=== PATIENT | male | born 1935 | race Caucasian/White ===

== ENCOUNTER 2016-11-22 14:43 | Outpatient (CLI) | payer MEDICARE ==
[~2016-11-22 14:43] MED LIST: Gadobenate Dimeglumine 529 MG/1 ML (20ML VIAL) ONE
--- NOTE | 2016-11-22 16:06 | MRI ---
PRE AND POSTCONTRAST ENHANCED MRI IMAGES BRAIN AND IACS: 11/22/16 HISTORY: 81-year-old male with history of left sided hearing loss. Multiplanar and multisequence pre and postcontrast enhanced MRI images of the brain is obtained. The patient has had previous endoscopic sinus surgery. 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 No evidence of intracranial masses, hemorrhages, or strokes seen. Some degree white matter ischemic changes are noted. No abnormal areas of masses or lesions seen in the internal auditory canals. IMPRESSION: Vertebrobasilar dolichoectasia, otherwise unremarkable pre and postcontrast enhanced MRI images of b rain and ICAs. POS: APRIL
== END 2016-11-22 14:44 | disposition home or self-care (01) ==
LOC: MRI 14:43
PROVIDERS: ATTEND Specialist
DX: H90.5 Unspecified sensorineural hearing loss (principal); G45.0 Vertebro-basilar artery syndrome
CPT/HCPCS: 70553; A9579

== ENCOUNTER 2018-04-14 18:00 | Outpatient (CLI) | payer MEDICARE | END 2018-04-14 18:01 | disposition home or self-care (01) | LOC: SLEEPLAB 18:00 | PROVIDERS: ATTEND Family Medicine | DX: G47.33 Obstructive sleep apnea (adult) (pediatric) (principal); R53.83 Other fatigue; G31.84 Mild cognitive impairment of uncertain or unknown etiology; K21.9 Gastro-esophageal reflux disease without esophagitis; R06.83 Snoring; F41.8 Other specified anxiety disorders; G47.00 Insomnia, unspecified; I51.9 Heart disease, unspecified; I10 Essential (primary) hypertension | CPT/HCPCS: 95806 ==

== ENCOUNTER 2020-06-15 15:20 | Outpatient (CLI) | payer MEDICARE | END 2020-06-15 15:21 | disposition home or self-care (01) | LOC: BICRAD 15:20 | PROVIDERS: ATTEND Family Medicine | DX: M54.2 Cervicalgia (principal); R20.2 Paresthesia of skin; M47.812 Spondylosis without myelopathy or radiculopathy, cervical region; M40.202 Unspecified kyphosis, cervical region; M48.02 Spinal stenosis, cervical region | CPT/HCPCS: 72052 ==

== ENCOUNTER 2021-09-02 19:41 | Observation (INO) | payer MEDICARE ==
[2021-09-02 20:59] LABS: #Eosinphils 0.3 thou/uL (0.0-0.7); #Lymphocytes 1.1 thou/uL (1.20-3.40); #Monocytes 0.7 thou/uL (0.11-0.59); #Neutrophils 8.7 thou/uL (1.40-6.50); %Basophils 0.1 % (0.0-1.0); %Eosinophils 2.9 % (0.0-10.0); %Lymphocytes 9.9 % (21.0-51.0); %Monocytes 6.6 % (0.0-10.0); %Neutrophils 80.5 % (42.0-75.0); Hemoglobin 16.8 g/dL (14.0-18.0); Mean Corpuscular HGB CONC 34.2 g/dL (32.0-36.0); Mean Corpuscular Hemoglobin 34.3 pg (27.0-31.0); Mean Platelet Volume 7.2 fL (7.4-10.4); Platelet Count 172 thou/uL (130-400); RBC Distribution Width 11.9 % (11.5-14.5); Red Blood Cell (RBC) Count 4.91 mill/uL (4.70-6.10); White Blood Cell (WBC) Count 10.7 thou/uL (4.8-10.8)
[2021-09-02 21:21] LABS: ALT (SGPT) 25 U/L (8-55); AST (SGOT) 25 U/L (5-34); Albumin 3.8 g/dL (3.4-4.8); Alkaline Phosphatase 72 U/L (40-110); Anion Gap 13 mmol/L (10-20); BUN (Urea Nitrogen) 19 mg/dL (8.4-25.7); Calc. Creatinine Clearance 0 mL/min (70-130); Calcium 9.2 mg/dL (7.8-10.44); Carbon Dioxide 29 mmol/L (23-31); Chloride 102 mmol/L (98-107); Estimated GFR 73; Glucose 130 mg/dL (83-110); Potassium 4.5 mmol/L (3.5-5.1); Protein, Total 6.8 g/dL (5.8-8.1); Sodium 139 mmol/L (136-145)
[2021-09-02] MEDS ORDERED: Fentanyl 100 MCG/2 ML VIAL ONE (23:56)
[2021-09-03] MEDS ORDERED: Aspirin 325 MG TAB ONE (02:15)
[2021-09-03] MEDS ORDERED: Ondansetron PF 4 MG/2 ML Vial IVP PRN (03:49)
[2021-09-03] MEDS ORDERED: Acetaminophen 325 MG TAB PO PRN (03:49)
[2021-09-03] MEDS ORDERED: Acetaminophen/Codeine 30-300mg Tablet PO PRN (04:14)
[2021-09-03] MEDS ORDERED: Aspirin 81 mg Enteric Coated Tablet PO SCH (09:00)
[2021-09-03] MEDS ORDERED: Enoxaparin Sodium 40 MG/0.4 ML SYRINGE SC SCH (09:00)
[2021-09-03] MEDS ORDERED: Enoxaparin Sodium 40 MG/0.4 ML SYRINGE ONE (09:05)
[2021-09-03 12:46] VITALS: BP 139/74
[2021-09-03 14:25] LABS: Bilirubin Negative (Negative); Blood, Urine Negative (Negative); Clarity Clear (Clear); Glucose, Urine (Dipstick) Normal (Negative); Ketone, Urine Negative (Negative); Leukocyte Negative Leu/uL (Negative); Nitrite Negative (Negative); Protein, Urine (Dipstick) Negative (Neg-Trace); Specific Gravity, Urine 1.013 (1.002-1.036); Urobilinogen Normal mg/dL (Less than 2)
[2021-09-03] MEDS ORDERED: Acetaminophen 325 MG TAB ONE (14:38)
== END 2021-09-03 15:07 | disposition home or self-care (01) ==
LOC: ERS 19:41 → ERHOLD 19:44 → UNDOADMOB 09-03 02:24 → ERHOLD 09-03 02:24 → UNDODISOB 09-03 15:07
PROVIDERS: ADMIT Internal Medicine; ATTEND Internal Medicine
DX: R27.0 Ataxia, unspecified (principal); S52.572A Other intraarticular fracture of lower end of left radius, initial encounter for closed fracture; I10 Essential (primary) hypertension; I48.20 Chronic atrial fibrillation, unspecified; E78.5 Hyperlipidemia, unspecified; G47.33 Obstructive sleep apnea (adult) (pediatric); Z66 Do not resuscitate; Z87.891 Personal history of nicotine dependence; Z79.899 Other long term (current) drug therapy; Z20.822 Contact with and (suspected) exposure to COVID-19; W18.30XA Fall on same level, unspecified, initial encounter
CPT/HCPCS: 29125; 70450; 70551; 71045; 73110; 80053; 81003; 84484; 85025; 93005; 96374; 99285; U0003; U0005; G0378; J1650; J3010